=== PATIENT | female | born 1985 | race Caucasian/White ===

== ENCOUNTER 2016-08-14 20:11 | Emergency (ER) | payer OTHER, MEDICAID ==
[2016-08-14 21:23] LABS: URINE BILIRUBIN NEGATIVE (NEGATIVE); URINE BLOOD TRACE (NEGATIVE); URINE GLUCOSE (UA) NEGATIVE (NEGATIVE); URINE LEUKOCYTE ESTERASE NEGATIVE (NEGATIVE); URINE NITRITE NEGATIVE (NEGATIVE); URINE PROTEIN NEGATIVE (NEGATIVE); URINE UROBILINOGEN NORMAL (0-1 mg/dl)
[2016-08-14 21:37] LABS: URINE APPEARANCE SL CLOUDY; URINE COLOR YELLOW
[2016-08-14 21:38] LABS: URINE BACTERIA 1+; URINE RBC 0-2 /hpf; URINE WBC 0-2 /hpf
== END 2016-08-15 00:33 | disposition home or self-care (01) ==
LOC: ED 20:11
DX: N23 Unspecified renal colic (principal); Z87.442 Personal history of urinary calculi; Z53.21 Procedure and treatment not carried out due to patient leaving prior to being seen by health care provider